=== PATIENT | female | born 1980 | race Caucasian/White ===

== ENCOUNTER 2016-10-08 15:44 | Emergency (ER) | payer MEDICAID ==
[~2016-10-08] VITALS: Ht 165.1 cm; Wt 74.8 kg
--- NOTE | 2016-10-08 16:26 | Emergency Room Report ---
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 N Clinical Suspician of Infection? N Mental Status: 1 - Regular (Normal Baseline) Sepsis Risk:Low Sepsis Risk Have you (or family members/close friends) recently traveled outside the [place]? N If Yes, where/when: Have you had exposure to infectious disease within the past month? N TB? Other? Specify: Comment Patient says she has swelling in her vulvovaginal area for about one week. She says it is getting worse. Denies fever. She says she had the same thing a year ago and was seen at [facility] emergency Department. She says she was treated with antibiotics, did not require incision and drainage, she says she was told it was from a clogged duct like a cyst. ALLERGIES Coded Allergies: meperidine (From DEMEROL) (Mild, 10/08/16) History Medical History General Hypertension? No Seizures? No Diabetes? No Hepatitis? No TB? No Cancer? 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 Physical Exam Vital Signs Vital Signs Date Time Temp Pulse Resp B/P Pulse O2 O2 Flow FiO2 Ox Delivery Rate 10/08 1748 98.2 123 18 118/70 96 10/08 1743 123 18 96 10/08 1555 98.2 123 18 118/70 96 General Appearance normal appearance Respiratory Status No: respiratory distress. Cardiovascular regular rate/rhythm Pelvic There is no Bartholin's abscess present. there is 1 small 1-2 mm ulcer present LEFT medial labia which is tender. No other lesions. No vesicles. No crops of vesicles or ulcers., no discharge present. No internal vaginal lesions. Nurse present during exam? Yes Neurologic alert Medical Decision Making LABS/Meds/Orders Pt receiving controlled substance in ED? No Results/Orders Laboratory Tests 10/08/16 1719: C.trachomatis DNA (ABIEL) Pending, N.gonorrhoeae RNA Pending Orders Procedure Date/time Status CULTURE, HERPES 10/08 1724 Active WET PREP 10/08 1640 Complete CHLAMYDIA/GC 10/08 1640 Active Progress - 5:40 PM: The patient says she is tired of waiting for swabs to arrive from the laboratory for her tests. I was going to collect a herpes swab but she has dressed and says she wants to leave prior to this being contacted. Advised to follow-up with Dr. Hancock, her tractor trailer technician. Departure Departure Disposition DC Home or Self Care(routine) Clinical Impression Primary Impression: Ulceration, vulva Condition STABLE Referrals Santi STOUT,Scar Espinoza Call for appointment Additional Instructions No sexual intercourse until you follow up with Dr. Hancock for further evaluation. Obtain results of tests from Dr. Hancock. ED Critical Care Critical Care No at 1911
--- NOTE | 2016-10-08 16:26 | Emergency Room Report ---
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 N Clinical Suspician of Infection? N Mental Status: 1 - Regular (Normal Baseline) Sepsis Risk:Low Sepsis Risk Have you (or family members/close friends) recently traveled outside the [place]? N If Yes, where/when: Have you had exposure to infectious disease within the past month? N TB? Other? Specify: Comment Patient says she has swelling in her vulvovaginal area for about one week. She says it is getting worse. Denies fever. She says she had the same thing a year ago and was seen at [facility] emergency Department. She says she was treated with antibiotics, did not require incision and drainage, she says she was told it was from a clogged duct like a cyst. ALLERGIES Coded Allergies: meperidine (From DEMEROL) (Mild, 10/08/16) History Medical History General Hypertension? No Seizures? No Diabetes? No Hepatitis? No TB? No Cancer? 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 Physical Exam Vital Signs Vital Signs Date Time Temp Pulse Resp B/P Pulse O2 O2 Flow FiO2 Ox Delivery Rate 10/08 1748 98.2 123 18 118/70 96 10/08 1743 123 18 96 10/08 1555 98.2 123 18 118/70 96 General Appearance normal appearance Respiratory Status No: respiratory distress. Cardiovascular regular rate/rhythm Pelvic There is no Bartholin's abscess present. there is 1 small 1-2 mm ulcer present LEFT medial labia which is tender. No other lesions. No vesicles. No crops of vesicles or ulcers., no discharge present. No internal vaginal lesions. Nurse present during exam? Yes Neurologic alert Medical Decision Making LABS/Meds/Orders Pt receiving controlled substance in ED? No Results/Orders Laboratory Tests 10/08/16 1719: C.trachomatis DNA (ABIEL) Pending, N.gonorrhoeae RNA Pending Orders Procedure Date/time Status CULTURE, HERPES 10/08 1724 Active WET PREP 10/08 1640 Complete CHLAMYDIA/GC 10/08 1640 Active Progress - 5:40 PM: The patient says she is tired of waiting for swabs to arrive from the laboratory for her tests. I was going to collect a herpes swab but she has dressed and says she wants to leave prior to this being contacted. Advised to follow-up with Dr. 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 Departure Departure Disposition DC Home or Self Care(routine) Clinical Impression Primary Impression: Ulceration, vulva Condition STABLE Referrals Santi STOUT,Scar Espinoza Call for appointment Additional Instructions No sexual intercourse until you follow up with Dr. Hancock for further evaluation. Obtain results of tests from Dr. Hancock. ED Critical Care Critical Care No at 1911
[2016-10-08 17:48] VITALS: BP 118/70
[2016-10-10 18:36] LABS: Neisseria gonorrhoeae, NAA Negative (Negative)
== END 2016-10-08 17:48 | disposition home or self-care (01) ==
LOC: ER 15:44
PROVIDERS: Emergency Medicine
DX: N76.6 Ulceration of vulva (principal)